=== PATIENT | female | born 1980 | race Caucasian/White ===

== ENCOUNTER 2017-02-20 08:39 | Inpatient (IN) | payer OTHER ==
[~2017-02-20] VITALS: Ht 157.5 cm; Wt 84.1 kg
[2017-02-20] MEDS ORDERED: LACTATED RINGER'S 1000ML 1,000 ML IV PRN (10:36)
--- NOTE | 2017-02-20 10:43 | Progress Note ---
Progress Note Date of Service Feb 20, 2017. Progress Note Admission Note 36 F P1001 at 41.1 weeks admitted for post dates induction of labor. GBS is negative. FHT Cat1 with no contractions. Cervix is finger tip/50/-3/vertex/ firm. EFW is 8- 8.5 lbs. Will use Cervidil for ripening.
[2017-02-20] MEDS ORDERED: DINOPROSTONE 10 MG INSERT PV ONE (10:45)
[2017-02-20 10:59] LABS: HEMATOCRIT 35.6 % (37-47); HEMOGLOBIN 12.5 g/dL (12.0-16.0); MEAN CELL VOLUME 89.7 fL (80-100); MEAN CORPUSCULAR HEMOGLOBIN 31.5 pg (25-34); MEAN CORPUSCULAR HGB CONC 35.1 g/dl (32-36); MEAN PLATELET VOLUME 9.8 fL (7.4-10.4); PLATELET COUNT 195 K/uL (130-400); RED CELL DISTRIBUTION WIDTH CV 12.9 % (11.5-14.5); RED CELL DISTRIBUTION WIDTH SD 41.9 fL (36.4-46.3); WHITE BLOOD COUNT 11.35 K/uL (4.8-10.8)
--- NOTE | 2017-02-20 11:31 | Progress Note ---
Progress Note Date of Service Feb 20, 2017. Progress Note Cervidil 10 mg placed vaginally. [facility] Cat 1
[2017-02-20 11:57] VITALS: Ht 157.5 cm; Wt 84.1 kg
[2017-02-20] MEDS ORDERED: FERR1TAB23 (11:57)
[2017-02-20] MEDS ORDERED: PRENTAB26 PO (11:57)
[2017-02-20] MEDS ORDERED: CALC667C4 PO (11:57)
[2017-02-20] MEDS ORDERED: BUTORPHANOL TARTRATE 1 MG/ML VIAL IV PRN (21:30)
[2017-02-20] MEDS ORDERED: NURSING VERBAL MED ORDER ONE (21:30)
[2017-02-21] MEDS ORDERED: NURSING VERBAL MED ORDER ONE (05:45)
[2017-02-21] MEDS ORDERED: MISOPROSTOLTAB 50 MCG TAB PO STA (05:47)
[2017-02-21] MEDS ORDERED: LACTATED RINGER'S 1000ML 500 ML IV PRN (08:59)
[2017-02-21] MEDS ORDERED: OXYTOCIN 30 UNITS/500ML NSS IV PRN (09:00)
[2017-02-21] MEDS: LACTATED RINGER'S 1000ML 1,000 ML IV SCH ×2 (09:51→17:27)
[2017-02-21] MEDS ORDERED: ONDANSETRON 4 MG TAB PO PRN (19:15)
[2017-02-21] MEDS ORDERED: ONDANSETRON INJ 2 MG/ML 2 ML VIAL ONE (19:36)
[2017-02-21] MEDS ORDERED: DINOPROSTONE 10 MG INSERT PV ONE (22:00)
[2017-02-22] MEDS: LACTATED RINGER'S 1000ML 1,000 ML IV SCH ×4 (02:09→17:36)
[2017-02-22] MEDS ORDERED: MISOPROSTOLTAB 50 MCG TAB PO STA (02:24)
[2017-02-22] MEDS: MISOPROSTOLTAB 50 MCG TAB PO SCH ×3 (09:51→16:00)
[2017-02-22] MEDS ORDERED: FLUCONAZOLE 50 MG TAB PO ONE (14:00)
[2017-02-22] MEDS ORDERED: LACTATED RINGER'S 1000ML 1,000 ML IV SCH ×2 (14:15→22:09)
[2017-02-22] MEDS ORDERED: FENTANYL CITRATE INJ 50 MCG/1 ML 2 ML VIAL ONE (17:17)
[2017-02-22] MEDS ORDERED: BUPIVACAINE 0.25% 30 ML VIAL ONE (17:17)
[2017-02-22] MEDS ORDERED: FENTANYL 2MCG/ML ROPIV 1.25MG/ML 100ML BAG EPI ONE (17:17)
[2017-02-22] MEDS ORDERED: EpHEDrine SULFATE INJ 50 MG/ML AMP ONE (17:17)
[2017-02-22] MEDS ORDERED: LACTATED RINGER'S 1000ML 500 ML IV PRN ×2 (17:31→18:22)
[2017-02-22] MEDS ORDERED: OXYTOCIN 30 UNITS/500ML NSS IV PRN ×2 (17:45→22:15)
[2017-02-22] MEDS ORDERED: NALOXONE HCL INJ 1 MG in SODIUM CHLORIDE 0.9% 1000ML 1,000 ML IV PRN (18:22)
[2017-02-22] MEDS ORDERED: NALBUPHINE HCL INJ 10 MG/ML AMP IV PRN (18:30)
[2017-02-22] MEDS ORDERED: NALOXONE HCL INJ 0.4 MG/1 ML VIAL/CARP IV PRN (18:30)
[2017-02-22] MEDS ORDERED: FENTANYL 2MCG/ML ROPIV 1.25MG/ML 100ML BAG EPI PRN (18:30)
[2017-02-22] MEDS ORDERED: DiphenhydrAMINE HCL 50 MG/ML VIAL IV PRN (18:30)
[2017-02-22] MEDS ORDERED: ONDANSETRON INJ 2 MG/ML 2 ML VIAL IV PRN (18:30)
[2017-02-22] MEDS ORDERED: EpHEDrine SULFATE INJ 50 MG/ML AMP IV PRN (18:30)
[2017-02-22] MEDS ORDERED: NURSING VERBAL MED ORDER ONE (21:45)
[2017-02-22] MEDS ORDERED: MISOPROSTOL 200 MCG TAB ONE (21:46)
[2017-02-22] MEDS ORDERED: HYDROCORTISONE ACETATE 25 MG SUPP PR PRN (22:15)
[2017-02-22] MEDS ORDERED: DIPHTHERIA/TETANUS/PERTUSSIS 0.5 ML SYR/VIAL IM. ONE (22:15)
[2017-02-22] MEDS ORDERED: ACETAMINOPHEN 325 MG TAB PO PRN (22:15)
[2017-02-22] MEDS ORDERED: LANOLIN OINT EXT PRN (22:15)
[2017-02-22] MEDS ORDERED: MEASLES, MUMPS & RUBELLA VIRUS VIAL SQ. ONE (22:15)
[2017-02-22] MEDS ORDERED: OXYCODONE/ACETAMINOPHEN 5-325 TAB PO PRN (22:15)
[2017-02-22] MEDS ORDERED: BENZOCAINE 20% AER SPR 82.5 GM CAN EXT PRN (22:15)
[2017-02-22] MEDS ORDERED: SUPERCREAM 0.870 % 15GM JAR EXT PRN (22:15)
[2017-02-22] MEDS ORDERED: CEFAZOLIN IV 2,000 MG in SYRINGE 0 ML IV SCH (22:30)
[2017-02-22] MEDS ORDERED: MISOPROSTOL 200 MCG TAB PR STA (23:01)
--- NOTE | 2017-02-22 23:15 | DELIVERY SUMMARY ---
DATE OF OPERATION: 02/22/2017 TIME OF DELIVERY OF BABY: 21:29 p.m. TIME OF DELIVERY OF PLACENTA: 21:49 p.m. DETAILS OF DELIVERY: The patient was found to be fully dilated and desired to push. She pushed for about 25 minutes and delivered the head without difficulty. Shoulders were delivered with minimal traction. The baby was handed off to the mother where mouth and nose were suctioned. Cord was clamped x2 and cut at 1 minute. Cord blood was obtained, it was 3-vessel cord. There were 2 finger like hymenal remnant mucosa hanging at the introitus at 10 and 2 o'clock positions. With the patient request, those extra hymenal tissues were excised with Metzenbaum scissors. The rest of the vagina and perineum were checked for lacerations and there was a second degree laceration at the posterior fourchette. It was confirmed with a rectal exam. The gloves were changed. The external sphincter of the rectum was reinforced with the figure of 8 sutures. The perineal body muscles and the vaginal mucosa were reapproximated with 2-0 Vicryl in a running fashion. The skin in a subcuticular fashion. Excellent hemostasis was achieved. Rectal exam was repeated, excellent sphincter tone was noted and no sutures were felt. Gloves were changed. Labial mucosa were oozing on the both sides where the hymenal tissues were excised. They were repaired with 3-0 Vicryl on SH needle with [id number] stitches on both sides. Hemostasis was achieved. The rest of the vagina and perineum were intact. The placenta was found to be in the vagina, delivered spontaneously as intact and complete. The uterus was explored and found to be empty. The lower segment was cleared off all clots and debris. EBL was 400. A fundal massage was done and uterus firmed up quickly. IV oxytocin infusion was started and 800 mcg of Cytotec was placed rectally. The fundus was firm and the bleeding slowed down to minimal. Mom and baby tolerated the procedure well. The patient was a viable male . Apgars 8/9, weight is 3980 gr. At the end of the procedure, sponge, needle and instrument counts were correct x2 and No complications happened and I was present during the whole procedure. I attest to the content of the Intraoperative Record and any orders documented therein. Any exceptions are noted below. MTDD
[2017-02-23] VITALS (7 sets, daily range): BP systolic 92–107; BP diastolic 56–66; PULSE 58–88; TEMP 36.3–36.7; O2SAT 97–98
[2017-02-23] MEDS: IBUPROFEN 600 MG TAB PO PRN ×4 (01:49→22:58)
--- NOTE | 2017-02-23 03:02 | Anesthesia Procedure Note ---
Anesthesia Epidural Removal Nt Date & Time Feb 23, 2017 at 03:01 Vital Signs Pain Intensity: 4.0 Vital Signs Past 12 Hours Date Time Temp Pulse Resp B/P (MAP) Pulse Ox O2 Delivery O2 Flow Rate FiO2 02/23/17 01:13 Room Air Notes Mental Status: alert / awake / arousable, participated in evaluation Nausea / Vomiting: adequately controlled Pain: adequately controlled Airway Patency, RR, SpO2: stable & adequate BP & HR: stable & adequate Hydration State: stable & adequate Neuraxial Anesthesia: was administered, sensory block is resolving Anesthetic Complications: no major complications apparent, pt satisfied with anesthetic care Epidural: removed without complications, with tip intact
[2017-02-23 06:01] LABS: HEMATOCRIT 32.4 % (37-47)
--- NOTE | 2017-02-23 08:03 | OB/GYN Progress Note ---
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 Patient is seen and examined. She feels well, no complaints. Ambulating without dizziness Voiding without difficulty Tolerating regular diet with out N&V Bleeding is minimal No fever/ chills/ CP/ SOB/ N&V/ Leg pain Breast feeding without problems Date Time Temp Pulse Resp B/P (MAP) Pulse Ox O2 Delivery O2 Flow Rate FiO2 02/23/17 07:57 36.3 61 14 92/56 (68) 97 Room Air 02/23/17 03:50 36.6 76 16 95/57 (70) Room Air 02/23/17 01:13 Room Air 02/23/17 00:20 36.7 80 16 100/58 (72) Last 24 Hours Test 02/23/17 05:30 Hemoglobin 11.0 g/dL Hematocrit 32.4 % PE: General: Alert, orientedx3, NAD Abd: soft, NT, fundus firm, at the Umbilicus Perineum intact, Lochia rubra minimal Ext; NT, no edema AP: 36 yo s/p , ppd# 1 VSS Afebrile doing well Continue routine care All questions were answered D/C home tomorrow
[2017-02-23] MEDS: FERROUS SULFATE 325 MG TAB PO SCH (08:40)
[2017-02-23] MEDS: DOCUSATE SODIUM 100 MG CAP PO SCH ×2 (08:40→19:36)
[2017-02-23] MEDS: PRENATAL VITAMIN TAB PO SCH (08:40)
[2017-02-23] MEDS: BISACODYL 5 MG TABEC PO SCH ×2 (08:59→19:36)
[2017-02-23] MEDS: MAGNESIUM HYDROXIDE SUSP 30 ML UDC PO SCH ×2 (09:00→19:36)
[2017-02-24] MEDS: IBUPROFEN 600 MG TAB PO PRN ×3 (03:31→14:15)
[2017-02-24 07:58] VITALS: BP 108/71; PULSE 69; TEMP 36.3
[2017-02-24 07:59] LABS: HEMATOCRIT 33.1 % (37-47); HEMOGLOBIN 11.2 g/dL (12.0-16.0); MEAN CELL VOLUME 91.7 fL (80-100); MEAN CORPUSCULAR HGB CONC 33.8 g/dl (32-36); PLATELET COUNT 189 K/uL (130-400); RED CELL DISTRIBUTION WIDTH SD 44.1 fL (36.4-46.3); WHITE BLOOD COUNT 11.44 K/uL (4.8-10.8)
--- NOTE | 2017-02-24 08:09 | OB/GYN Progress Note ---
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 Subjective conversation w/ patient, physical exam Ambulation: limited ambulation Voiding: no voiding problems Passing Gas: Yes Diet Tolerance: Regular Diet Lochia: Moderate Feeding Type: Breast Feeding Review of Systems Constitutional: No fever, No chills, No sweats, No weight loss, No weakness, No fatigue, No problem reported Respiratory: No cough, No sputum, No wheezing, No shortness of breath, No dyspnea on exertion, No dyspnea at rest, No hemoptysis, No problem reported Cardiac: No chest pain, No orthopnea, No PND, No edema, No claudication, No palpitations, No problem reported Breast: No see HPI, No breast lump, No change in shape, No nipple discharge, No breast pain, No problem reported Abdomen: No pain, No nausea, No vomiting, No diarrhea, No constipation, No GI bleeding, No problem reported Female : No see HPI, No dysuria, No urinary frequency, No hematuria, No incontinence, No abnormal vaginal bleeding, No vaginal discharge, No problem reported Objective Vital Signs Date Time Temp Pulse Resp B/P (MAP) Pulse Ox O2 Delivery O2 Flow Rate FiO2 02/24/17 07:58 36.3 69 18 108/71 (83) Room Air 02/23/17 23:00 36.4 76 18 101/64 (76) 97 Room Air 02/23/17 23:00 97 Room Air 02/23/17 19:25 36.4 79 18 107/66 (80) 98 Room Air 02/23/17 15:35 97 Room Air 02/23/17 15:35 36.5 81 16 99/61 (74) 98 Room Air 02/23/17 11:00 36.3 58 16 96/58 (71) 98 Room Air Physical Exam General Appearance: WELL-APPEARING, WD/WN Respiratory/Chest: chest non-tender, lungs clear, normal breath sounds Cardiovascular: regular rate, rhythm, no edema, no gallop Abdomen: normal bowel sounds, non tender, soft Fundus: Firm Incision Description: Erythema Extremities: normal range of motion, non-tender, normal inspection Laboratory Results Last 24 Hours Test 02/24/17 07:25 White Blood Count 11.44 K/uL Red Blood Count 3.61 M/uL Hemoglobin 11.2 g/dL Hematocrit 33.1 % Mean Corpuscular Volume 91.7 fL Mean Corpuscular Hemoglobin 31.0 pg Mean Corpuscular Hemoglobin Concent 33.8 g/dl RDW Standard Deviation 44.1 fL RDW Coefficient of Variation 13.0 % Platelet Count 189 K/uL Mean Platelet Volume 10.0 fL Assessment and Plan Day Number: 2 Continue Routine Care: PPD #2 pt doing well disch home with instructions
[2017-02-24] MEDS ORDERED: MTR600X PO (08:10)
--- NOTE | 2017-02-24 08:15 | Discharge Instructions ---
Discharge Instructions Date of Service Feb 24, 2017. Admission Reason for Admission: Induction Discharge Discharge Diagnosis / Problem: Discharge Goals Goal(s): Routine recovery after delivery Activity Recommendations Activity Limitations: as noted below ACTIVITY RECOMMENDATIONS: * Gradual return to full activity over the next 2-3 weeks. * No lifting - nothing heavier than baby over the next 2-3 weeks. * Do not engage in vigorous exercise, sexual activity or sports until cleared by your physician. * Do not drive or operate any motorized equipment until cleared by your physician. * You may shower/bathe daily. BREAST CARE: If you are not breast feeding: * Wear a supportive bra 24 hours a day for one to two weeks. * Avoid stimulating your breasts and nipples as much as possible during the first few weeks after delivery. * When taking a shower, have the warm water hit your back, not breasts. * When your breasts feel full, apply ice packs. Usually three to four times a day helps ease the discomfort. * Take a mild pain medication (Tylenol/Motrin) when you are uncomfortable. If breast feeding: * Use breast milk to lubricate nipples. Lansinoh cream may be used for sore nipples. You do not need to remove cream prior to breast feeding. If using a different brand of cream, check the label for directions regarding removal of cream prior to nursing. * Wear a supportive bra. * If having problems with breasts or breast feeding, call a specialty development consultant or your health care provider. EPISIOTOMY CARE: After delivery, if you have an episiotomy (stitches), the following steps will ease discomfort and aid healing. * For the first 24 hours after delivery, place ice packs next to your episiotomy to help reduce swelling. * After the first 24 hour-period, sitz baths, either portable or in the tub, are suggested. A shower with a shower arm sprayed over the episiotomy may be comforting. * Mattie care should be done after each voiding and bowel movement. Squirt warm water from a plastic bottle over the perineum (region of the body between the anus and urinary opening) and pat dry. * Use Dermoplast to ease discomfort. Shake container. Boomer directly over the episiotomy. * Place a Tucks on a clean sanitary pad next to your episiotomy. OVER THE COUNTER MEDICATION: * For discomfort or pain, you may use Acetaminophen (Tylenol), Ibuprofen (Advil ), or Naproxen (Aleve) following the package directions. * For constipation you may use Colace following the package directions. SPECIAL CARE INSTRUCTIONS: When you are discharged from the hospital, it is important for you to follow the instructions listed below: * During the first week at home, you should be able to care for yourself and your baby. In addition, the usual light household activities are encouraged. * Limit your activities to the way you feel. Do not try to clean the house or move furniture. Be sensible. * If you actively engage in sports and have done so up until the time of your delivery, you may resume these activities as soon as you feel able. This may take up to one month or even longer. Use good judgment. * Continue to take your vitamins for at least six weeks after the of your baby. * Your diet need not be limited unless you were on a special diet before your delivery. Breast-feeding mothers need around 2500 calories per day and at least 64-80 ounces of fluid per day (8 to 10 glasses). * You should eat foods from the four major food groups. Crash diets or fad diets are to be avoided. Eating lean meats, fresh fruits and vegetables, low-fat dairy products, high fiber foods and a regular exercise program, will help you get back to your pre- weight without putting your health at risk. * Constipation is sometimes a problem after delivery. Take a mild laxative as needed. If breast feeding, Milk of Magnesia is acceptable to use. You may use a suppository or Fleets enema if no episiotomy. * A daily shower or tub bath is suggested. Be sure to thoroughly and gently dry the perineum. * A bloody vaginal discharge will usually continue until around four weeks post . A small amount of bleeding may continue for as long as six weeks. Vaginal discharge changes from the bright red bleeding after delivery to pink then brownish and finally yellowish-pink before becoming white and disappearing. * Bleeding may increase with activity. Your first period may come in 4-8 weeks. If you are breast feeding, your period may be delayed even longer. * [place] (sex) can begin whenever both you and your partner feel comfortable and do not have any form of genital infection. It is recommended that you wait until after your return appointment and discuss with your physician. If you have questions, please talk to your health care practitioner. A condom should be used to prevent infection and . * Foreplay, gentle intercourse and lubrication is very important the first several times to prevent pain. A water-based lubricant such as K-Y jelly or Astroglide may be used. * Tampons may be used six weeks after delivery. * Douching should be avoided for 6 weeks after delivery. * If you have RH negative blood and your baby is RH positive, you will receive RHOGAM by injection prior to discharge. The nurse will give you a card to keep with you that has the date and place that you received RHOGAM after delivery. * During your care, you had a Rubella screen done to check for the presence of rubella antibodies in your blood. If your test was negative, you will receive a Rubella vaccine prior to discharge. This vaccine may cause a fever, soreness at the injection site and flu-like symptoms. If these symptoms persist, notify your health care practitioner. is not advised for three months after a Rubella vaccine. There is a higher chance of having a baby with defects if conceived within three months of getting the vaccine. * If you were discharged 24 hours from delivery or before 48 hours: Visiting nurses will come to your home 48 hours after discharge to assess you and your baby. The visiting nurse will meet with you while you are in the hospital to arrange a time and get directions to your home. * Verbalizes understanding of car seat law as reviewed with patient nursing. * Car Seat hand-out given and reviewed with patient by nursing. * Shaken baby information reviewed with patient by nursing. Call you doctor if: * Heavy bleeding (saturating several pads an hour) or passing clots the size of your fist. * A fever >101 degrees F (38.3 degrees C) on two occasions four hours apart and/or chills. * Unusual pain in the pelvic or vaginal areas. * "Baby Blues" lasting longer than two weeks. If you have any questions or concerns, call your health care practitioner at . FOLLOW-UP VISIT: * Please call the office at to schedule a 6 week examination. It is important you keep this appointment. * It is important for you to make arrangements for either yearly or twice yearly check-ups thereafter. . Current Hospital Diet Patient's current hospital diet: Regular OB Diet Discharge Diet Recommended Diet: Regular Diet Pending Studies Studies pending at discharge: no Medical Emergencies . Who to Call and When: Medical Emergencies: If at any time you feel your situation is an emergency, please call 911 immediately. . Non-Emergent Contact Non-Emergency issues call your: Specialist . . "Provider Documentation" section prepared by Michael Mancera. . VTE Core Measure Inpt VTE Proph given/why not?: Treatment not indicated
[2017-02-24] MEDS ORDERED: MISC-836 (08:18)
[2017-02-24] MEDS: PRENATAL VITAMIN TAB PO SCH (08:19)
[2017-02-24] MEDS: DOCUSATE SODIUM 100 MG CAP PO SCH (08:19)
[2017-02-24] MEDS: BISACODYL 5 MG TABEC PO SCH (08:20)
[2017-02-24] MEDS: FERROUS SULFATE 325 MG TAB PO SCH (08:20)
[2017-02-24] MEDS: MAGNESIUM HYDROXIDE SUSP 30 ML UDC PO SCH (08:21)
[2017-02-24] MEDS ORDERED: ACETAMINOPHEN 325 MG TAB PO PRN (09:00)
[2017-02-24] MEDS ORDERED: LANOLIN OINT EXT PRN (09:00)
[2017-02-24] MEDS ORDERED: IBUPROFEN 600 MG TAB PO PRN (09:00)
[2017-02-24] MEDS ORDERED: OXYTOCIN 30 UNITS/500ML NSS IV PRN (09:00)
[2017-02-24] MEDS ORDERED: METHYLERGONOVINE MALEATE 0.2 MG/ML AMP IM ONE (09:00)
[2017-02-24] MEDS ORDERED: MISOPROSTOL 200 MCG TAB PR SCH (09:00)
[2017-02-24] MEDS ORDERED: SUPERCREAM 0.870 % 15GM JAR EXT PRN (09:00)
[2017-02-24] MEDS ORDERED: BENZOCAINE 20% AER SPR 82.5 GM CAN EXT PRN (09:00)
[2017-02-24] MEDS ORDERED: OXYCODONE/ACETAMINOPHEN 5-325 TAB PO PRN (09:00)
[2017-02-24] MEDS ORDERED: ACETAMINOPHEN/CODEINE 300/30MG TAB PO PRN ×2 (09:00)
[2017-02-24] MEDS ORDERED: HYDROCORTISONE ACETATE 25 MG SUPP PR PRN (09:00)
[2017-02-24 14:35] VITALS: BP_DIAS 71; PULSE 69; TEMP 36.3
[2017-02-24] MEDS ORDERED: DOCUSATE SODIUM 100 MG CAP PO SCH (20:00)
[2017-02-25] MEDS ORDERED: FERROUS SULFATE 325 MG TAB PO SCH (08:00)
[2017-02-25] MEDS ORDERED: BISACODYL 5 MG TABEC PO SCH (20:00)
[2017-02-26] MEDS ORDERED: BISACODYL 10 MG SUPP PR PRN (07:00)
== END 2017-02-24 14:35 | disposition home or self-care (01) | DRG 775 ==
LOC: UNDOADMIN 08:55 → C.LD 08:55 → C.OBG 02-23 00:21
PROVIDERS: ADMIT Obstetrics & Gynecology; ATTEND Obstetrics & Gynecology
PROC: 3E0P7GC Introduction of Other Therapeutic Substance into Female Reproductive, Via Natural or Artificial Opening (ICD-10-PCS; principal; 2017-02-22)
PROC: 0UQMXZZ Repair Vulva, External Approach (ICD-10-PCS; principal; 2017-02-22)
PROC: 0U7C7ZZ Dilation of Cervix, Via Natural or Artificial Opening (ICD-10-PCS; principal; 2017-02-22)
PROC: 0KQM0ZZ Repair Perineum Muscle, Open Approach (ICD-10-PCS; principal; 2017-02-22)
PROC: 10E0XZZ Delivery of Products of Conception, External Approach (ICD-10-PCS; principal; 2017-02-22)
PROC: 3E033VJ Introduction of Other Hormone into Peripheral Vein, Percutaneous Approach (ICD-10-PCS; principal; 2017-02-22)
PROC: 0UBKXZZ Excision of Hymen, External Approach (ICD-10-PCS; principal; 2017-02-22)
DX: O48.0 Post-term pregnancy (principal); O70.1 Second degree perineal laceration during delivery; O75.89 Other specified complications of labor and delivery; Z37.0 Single live birth; Z3A.41 41 weeks gestation of pregnancy; Z87.891 Personal history of nicotine dependence